=== PATIENT | male | born 1990 | race Caucasian/White ===

== ENCOUNTER 2018-12-23 10:01 | Emergency (ER) | payer SELFPAY ==
[2018-12-23] MEDS ORDERED: Sodium Chloride 0.9% 10 ML Syringe FLUSH PRN (10:32)
[2018-12-23] MEDS ORDERED: Lidocaine 1% 10 ML MDV INJECT ONE (10:32)
--- NOTE | 2018-12-23 10:33 | EDM.PDOC ---
ED HPI GENERAL MEDICAL PROBLEM - General Chief Complaint: Neurological Problem Stated Complaint: SEIZURE Time Seen by Provider: 12/23/18 10:16 Source of Information: Reports: Patient, RN Notes Reviewed - History of Present Illness INITIAL COMMENTS - FREE TEXT/NARRATIVE: 28-year-old male was reported to have had a generalized seizure early this morning about 7 or 8 hours ago. He states he was standing shaving in the bathroom and then the next thing he knows he "was on the floor" his girlfriend heard him fall and observed generalized seizure activity that lasted more than 5 minutes, perhaps up to 10-15 minutes by her history from patient. EMS was called out but by the time they arrived the seizure had stopped, patient was awake and declined transport. Now that he has had more time to sleep and think about this he realizes he is at danger if he were to have another seizure when working. 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 - Related Data Allergies Allergy/AdvReac Type Severity Reaction Status Date / Time No Known Allergies Allergy Verified 12/23/18 10:13 Home Meds: Home Meds . [No Known Home Meds] 02/12/17 [History] Past Medical History - Past Health History Medical/Surgical History: Denies Medical/Surgical History Cardiovascular History: Reports: None Respiratory History: Reports: None Gastrointestinal History: Reports: None Genitourinary History: Reports: None Musculoskeletal History: Reports: None Neurological History: Reports: Seizure Psychiatric History: Reports: None Endocrine/Metabolic History: Reports: None Hematologic History: Reports: None Immunologic History: Reports: None Oncologic (Cancer) History: Reports: None Dermatologic History: Reports: None - Infectious Disease History Infectious Disease History: Reports: None - Past Surgical History Head Surgeries/Procedures: Reports: None HEENT Surgical History: Reports: Oral Surgery Social & Family History - Family History Family Medical History: Unobtainable - Tobacco Use Smoking Status *Q: Current Some Day Smoker Years of Tobacco use: 10 Packs/Tins Daily: 1 - Caffeine Use Caffeine Use: Reports: Coffee, Energy Drinks, Soda - Recreational Drug Use Recreational Drug Use: No ED ROS GENERAL - Review of Systems Review Of Systems: See Below Constitutional: Denies: Fever, Chills HEENT: Reports: Other (Left mouth laceration, no tongue injury) Respiratory: Denies: Shortness of Breath Cardiovascular: Denies: Chest Pain GI/Abdominal: Denies: Abdominal Pain, Nausea, Vomiting Musculoskeletal: Denies: Back Pain Skin: Reports: No Symptoms Neurological: Reports: Dizziness (He did feel dizzy for a while after the seizure, he now does feel back to normal) - Physical Exam Exam: See Below General Appearance: Alert, No Apparent Distress Throat/Mouth: Other (There is a 1.5 cm laceration L upper mouth that does cross the ismael border, moderately deep, gaping). No: Evidence of Tongue Biting Head Exam: Other (No other area of injury to the head or face). No: Facial Swelling Neck: Normal Inspection, Supple, Non-Tender Respiratory/Chest: No Respiratory Distress, Lungs Clear GI/Abdominal: Soft, Non-Tender Neuro Exam (Abbreviated): Alert, Oriented, No Motor/Sensory Deficits, Other (He has very slight shakiness of the upper extremities, [id number] testing normal) Extremities: Normal Inspection, Normal Range of Motion Skin Exam: Warm, Dry, Normal Color ED PROCEDURES - Laceration/Wound Repair Left Mouth Lac/wound length in cm: 1.5 Appearance: Linear Distal NVT: Neuro & Vascular Intact Anesthetic Type: Local Local Anesthesia - Lidocaine (Xylocaine): 1% Plain Skin Prep: Saline Suture Size: 4-0 # of Sutures: 3 Course - Vital Signs Last Recorded V/S: Last Vital Signs Temp 98.6 F 12/23/18 10:07 Pulse 82 12/23/18 10:07 Resp 16 12/23/18 10:07 BP 132/65 12/23/18 10:07 Pulse Ox 100 12/23/18 10:07 - Orders/Labs/Meds Orders: Active Orders 24 hr Category Date Time Status Peripheral IV Care [RC] . DIRECTED Care 12/23/18 10:33 Active Vaccines to be Administered [RC] PER UNIT ROUTINE Care 12/23/18 13:21 Active Peripheral IV Insertion Adult [OM.PC] Stat Oth 12/23/18 10:32 Ordered Labs: Laboratory Tests 12/23/18 12/23/18 Range/Units 10:55 10:55 WBC 8.45 (4.23-9.07) K/mm3 RBC 4.24 L (4.63-6.08) M/mm3 Hgb 13.0 L (13.7-17.5) gm/dl Hct 39.1 L (40.1-51.0) % MCV 92.2 (79.0-92.2) fl MCH 30.7 (25.7-32.2) pg MCHC 33.2 (32.2-35.5) g/dl RDW Std Deviation 41.7 (35.1-43.9) fL Plt Count 312 (163-337) K/mm3 MPV 9.9 (9.4-12.3) fl Neut % (Auto) 70.3 H (34.0-67.9) % Lymph % (Auto) 15.9 L (21.8-53.1) % Prairie % (Auto) 11.2 (5.3-12.2) % Eos % (Auto) 2.0 (0.8-7.0) Baso % (Auto) 0.2 (0.1-1.2) % Neut # (Auto) 5.94 H (1.78-5.38) K/mm3 Lymph # (Auto) 1.34 (1.32-3.57) K/mm3 Prairie # (Auto) 0.95 H (0.30-0.82) K/mm3 Eos # (Auto) 0.17 (0.04-0.54) K/mm3 Baso # (Auto) 0.02 (0.01-0.08) K/mm3 Sodium 140 (136-145) mEq/L Potassium 4.6 (3.5-5.1) mEq/L Chloride 103 (98-107) mEq/L Carbon Dioxide 31 (21-32) mEq/L Anion Gap 10.6 (5-15) BUN 12 (7-18) mg/dL Creatinine 0.8 (0.7-1.3) mg/dL Est Cr Clr Drug Dosing 143.80 mL/min Estimated GFR (MDRD) > 60 (>60) mL/min BUN/Creatinine Ratio 15.0 (14-18) Glucose 87 (74-106) mg/dL Calcium 8.8 (8.5-10.1) mg/dL Total Bilirubin 0.5 (0.2-1.0) mg/dL AST 24 (15-37) U/L ALT 36 (16-63) U/L Alkaline Phosphatase 96 (46-116) U/L Total Protein 7.0 (6.4-8.2) g/dl Albumin 3.8 (3.4-5.0) g/dl Globulin 3.2 gm/dL Albumin/Globulin Ratio 1.2 (1-2) Ethyl Alcohol 0.00 (0.00) gm% Meds: Medications Discontinued Medications Generic Name Dose Route Start Last Admin Trade Name Freq PRN Reason Stop Dose Admin Diphtheria/Tetanus/Acell Pertussis 0.5 ml 12/23/18 13:20 12/23/18 13:26 Adacel IM 12/23/18 13:21 0.5 ml .ONCE ONE Administration Sodium Chloride 1,000 mls @ 999 mls/hr 12/23/18 10:45 12/23/18 10:57 Normal Saline IV 999 mls/hr ONETIME ISAIAS Administration Lidocaine HCl 10 ml 12/23/18 10:32 12/23/18 10:47 Xylocaine 1% INJECT 12/23/18 10:33 10 ml ONETIME ONE Administration Sodium Chloride 10 ml 12/23/18 10:32 12/23/18 10:58 Saline Flush FLUSH 10 ml ASDIRECTED PRN Administration Keep Vein Open - Re-Assessments/Exams Free Text/Narrative Re-Assessment/Exam: 12/23/18 14:06 Labs did come back relatively normal. He did admit upon further questioning further that he had been drinking about 20 shots of hard liquor per day and then due to pressure from his girlfriend he decided to quit. Did taper down to about 10 shots a day and now has not had alcohol for about 5-7 days. He does work at [employer]. He states at times he will be up on ladders and tall bands 30-40 feet from the floor of the been. It obviously would be a great danger to him if he were to have a seizure in that situation. Discharge instructions as documented. Departure - Departure Time of Disposition: 12:42 Disposition: Home, Self-Care 01 Condition: Fair Clinical Impression: Seizure Laceration of mouth Qualifiers: Encounter type: initial encounter Qualified Code(s): S01.512A - Laceration without foreign body of oral cavity, initial encounter - Discharge Information Instructions: Laceration Care, Adult, Seizure, Adult Referrals: PCP,None [Primary Care Provider] - Forms: ED Department Discharge, ED Return to Work/School Form Additional Instructions: As discussed this was most likely an alcohol withdrawal seizure that you suffered early this morning. Therefore DO NOT DRIVE or work from any heights on a ladder more than 8-10 feet until you have had a follow-up medical appointment , EEG that is normal. You than can be fully cleared to drive and return to full duty at work with all of your prior activities which include climbing ladders to quite high heights. Continue to avoid alcohol. Return to ED as needed if symptoms worsening in any way. Laceration care instructions. Sutures can be removed in 5 days at our [facility] medical clinic. Call [phone] for appointment. - My Orders Last 24 Hours: My Active Orders 12/23/18 10:32 Peripheral IV Insertion Adult [OM.PC] Stat 12/23/18 10:33 Peripheral IV Care [RC] . DIRECTED 12/23/18 13:21 Vaccines to be Administered [RC] PER UNIT ROUTINE - Assessment/Plan Last 24 Hours: My Active Orders 12/23/18 10:32 Peripheral IV Insertion Adult [OM.PC] Stat 12/23/18 10:33 Peripheral IV Care [RC] . DIRECTED 12/23/18 13:21 Vaccines to be Administered [RC] PER UNIT ROUTINE
[2018-12-23] MEDS ORDERED: Sodium Chloride 0.9% 1,000 ML IV SCH (10:45)
[2018-12-23] MEDS ORDERED: Diphtheria,Pertussis(Acell),Tetanus Vaccine 0.5 ML Syringe IM ONE (13:20)
== END 2018-12-23 13:30 | disposition home or self-care (01) ==
LOC: JD.ED 10:01
DX: S01.512A Laceration without foreign body of oral cavity, initial encounter (principal); R56.9 Unspecified convulsions; F17.210 Nicotine dependence, cigarettes, uncomplicated; Z23 Encounter for immunization; W19.XXXA Unspecified fall, initial encounter; Y92.89 Other specified places as the place of occurrence of the external cause
CPT/HCPCS: 12011; 36415; 80053; 80320; 85025; 90471; 90715; 96360; 99284; J2001; J7040; 99283; G0480

== ENCOUNTER 2019-06-06 20:38 | Emergency (ER) | payer MEDICAID ==
--- NOTE | 2019-06-06 21:15 | EDM.PDOC ---
ED HPI GENERAL MEDICAL PROBLEM - General Chief Complaint: Abdominal Pain Stated Complaint: UPPER LEFT PAIN NEAR RIBCAGE Time Seen by Provider: 06/06/19 20:54 Source of Information: Reports: Patient History Limitations: Reports: No Limitations - History of Present Illness INITIAL COMMENTS - FREE TEXT/NARRATIVE: Mr. James is a very pleasant 29 year old man with a past medical history significant for a seizure suffered on 12/23/2018, for which he is on Keppra, who now presents to the ED after developing lower anterior left rib pain that he states developed after he had vigorous foreplay with his girlfriend, 3 or 4 days ago. He states that the pain is a "light pain" unless he flexes his abdominal musculature, such as with a sit up, at which time it becomes more severe. He otherwise denies dyspnea, chest pain, or palpitations. He has not taken any [id number] or home remedies to try to treat his symptoms. No prior similar symptoms. The patient denies recent fever, chills, sore throat, ear pain, nasal or sinus congestion, cough, nausea, vomiting, constipation, diarrhea, abdominal pain, urinary symptoms, recent weight gain or weight loss, recent bloody bowel movements or black bowel movements, recent joint aches, headaches, or rashes. Here in the ED, the patient is found to be hemodynamically stable, afebrile, saturating 97% on room air. The patient does not have a PCP. He does not recall the name of his Neurologist, at [facility]. He did not receive an influenza vaccine this season, and declined an offer to receive one here today. Left Upper Abdomen Pain Score (Numeric/FACES): 3 - Related Data Allergies Allergy/AdvReac Type Severity Reaction Status Date / Time No Known Allergies Allergy Verified 06/06/19 20:48 Home Meds: Home Meds Orphenadrine [Norflex] 1 tab PO Q12H PRN #14 tab.er 06/06/19 [Rx] levETIRAcetam [Keppra Xr] 1,500 mg PO BID 06/06/19 [History] Past Medical History Neurological History: Reports: Seizure (x 1 on 12/23/2018) - Past Surgical History HEENT Surgical History: Reports: Oral Surgery (wisdom teeth extraction) Social & Family History - Family History Family Medical History: Unobtainable - Tobacco Use Smoking Status *Q: Current Some Day Smoker Tobacco Use Within Last Twelve Months: Vaping (nicotine) Years of Tobacco use: 14 Packs/Tins Daily: 0.1 Packs/Tins Daily Comment: Down from 1 ppd - Caffeine Use Caffeine Use: Reports: Coffee, Energy Drinks, Soda - Alcohol Use Alcohol Use History: Yes Days Per Week of Alcohol Use: 2 Number of Drinks Per Day: 5 Total Drinks Per Week: 10 Alcohol Use Frequency: Socially (rarely to excess) - Recreational Drug Use Recreational Drug Use: Yes Drug Use in Last 12 Months: Yes Recreational Drug Type: Reports: Amphetamines (Speed) (last used around 2015), Ecstasy (last used around 2015), Heroin (last snorted, smoked, injected around 2015), LSD (Acid) (last used around 2015), Marijuana/Hashish (last smoked 2018) , Methamphetamine (last snorted, smoked, injected around 2015), Psilocybin ( Mushrooms) (last used around 2015), Other (see below) (Takes kratom daily) - Living Situation & Occupation Living situation: Reports: Single, with Significant Other (Girlfriend) Occupation: Unemployed ED ROS GENERAL - Review of Systems Review Of Systems: Comprehensive ROS is negative, except as noted in HPI. ED EXAM, GENERAL - Physical Exam Exam: See Below Exam Limited By: No Limitations General Appearance: Alert, WD/WN, No Apparent Distress Eye Exam: Bilateral Eye: EOMI, Normal Inspection Ears: Normal External Exam, Hearing Grossly Normal Nose: Normal Inspection Throat/Mouth: Normal Inspection, Normal Lips, Normal Voice, No Airway Compromise Head: Atraumatic, Normocephalic Neck: Normal Inspection, Full Range of Motion Respiratory/Chest: No Respiratory Distress, Lungs Clear, Normal Breath Sounds, No Accessory Muscle Use, Other (Reproducible tenderness to palpation of the lower left anterior ribs, in particular, the intercostal muscles. Related to this area, such as swelling, erythema, ecchymosis, or abrasion. No rub heard with respirations.). No: Decreased Breath Sounds, Crackles, Rhonchi, Wheezing, Pleural Rub, Prolonged Expiration Cardiovascular: Normal Peripheral Pulses, Regular Rate, Rhythm, No Edema, No Gallop, No JVD, No Murmur, No Rub Peripheral Pulses: 4+: Radial (L), Radial (R) GI/Abdominal: Normal Bowel Sounds, Soft, Non-Tender, No Organomegaly, No Distention, No Abnormal Bruit, No Mass (Male) Exam: Deferred Rectal (Males) Exam: Deferred Back Exam: Normal Inspection, Full Range of Motion, NT Extremities: Normal Inspection, Normal Range of Motion, No Pedal Edema, Normal Capillary Refill Neurological: Alert, Oriented, Normal Cognition, No Motor/Sensory Deficits Psychiatric: Normal Affect Skin Exam: Warm, Dry, Intact, Normal Color, No Rash Course - Vital Signs Last Recorded V/S: Last Vital Signs Temp 36.3 C 06/06/19 20:50 Pulse 78 06/06/19 20:50 Resp 16 06/06/19 20:50 BP 118/77 06/06/19 20:50 Pulse Ox 97 06/06/19 20:50 - Orders/Labs/Meds Orders: Active Orders 24 hr Category Date Time Status Chest 2V [CR] Stat Exams 06/06/19 21:12 Taken Labs: Laboratory Tests 06/06/19 Range/Units 21:25 D-Dimer, Quantitative 0.28 (0.19-0.50) mg/L - Re-Assessments/Exams Free Text/Narrative Re-Assessment/Exam: 06/06/19 21:13 The patient most likely strained some musculature over his lower left rib, or, alternatively he is suffering from an intercostal muscle spasm, however, in order to rule out a traumatic injury, such as a broken rib, or a PE, I have ordered a chest x-ray and a D-dimer. 06/06/19 22:24 Two-view chest radiograph appears to be grossly normal. The cardiac silhouette is within normal limits. No pulmonary vascular congestion. No pleural effusions. No focal infiltrate. No pneumothorax. Formal read per the Radiologist pending. The patient's D-dimer is within normal limits at 0.28. 06/06/19 22:31 Test results discussed with the patient. As above, today's work-up is unremarkable. The patient's pain is most likely due to an intercostal muscle spasm. The patient will be started on Norflex and ibuprofen, and I will prescribe some Norflex for him. Departure - Departure Time of Disposition: 22:32 Disposition: Home, Self-Care 01 Condition: Good Clinical Impression: Intercostal muscle strain - Discharge Information *PRESCRIPTION DRUG MONITORING PROGRAM REVIEWED*: Not Applicable *COPY OF PRESCRIPTION DRUG MONITORING REPORT IN PATIENT ARNAV: Not Applicable Referrals: PCP,None [Primary Care Provider] - Forms: ED Department Discharge Additional Instructions: You were seen in the emergency room after developing lower left rib pain following strenuous activity 3 to 4 days ago. Work-up in the ER included a chest x-ray and a D-dimer level, both of which returned normal. You do not have pneumonia or collapsed lung. You do not have a blood clot in your lungs. Based on your history, physical exam, and ER tests, the cause of your pain is most likely due to a spasm of an intercostal (between the ribs) muscle. You have been started on the muscle relaxant Norflex, and a prescription for Norflex has been sent to the [facility], located at [address] [place] [address]. Take 1 tablet of Norflex every 12 hours, starting tomorrow morning, Friday, 06/06, as prescribed. Norflex works well with ibuprofen. Take 3 tablets (600 mg) of [id number] ibuprofen, with food, every 8 hours, as needed for discomfort. If any other problems, please do not hesitate to return to the ER. Sepsis Event Note - Evaluation Sepsis Screening Result: No Definite Risk - Focused Exam Vital Signs: Vital Signs Temp Pulse Resp BP Pulse Ox 06/06/19 20:50 36.3 C 78 16 118/77 97 Date Exam was Performed: 06/06/19 Time Exam was Performed: 22:23 - My Orders Last 24 Hours: My Active Orders 06/06/19 21:12 Chest 2V [CR] Stat - Assessment/Plan Last 24 Hours: My Active Orders 06/06/19 21:12 Chest 2V [CR] Stat
[2019-06-06] MEDS ORDERED: Ibuprofen 600 MG Tab PO ONE (22:31)
[2019-06-06] MEDS ORDERED: Orphenadrine 100 MG Tab.ER PO STA (22:31)
--- NOTE | 2019-06-07 07:42 | CR ---
Chest: 2 views of the chest were obtained. Comparison: No prior chest imaging is available. Heart size and mediastinum are normal. Lungs are clear with no acute parenchymal change. Bony structures are unremarkable. Impression: 1. Nothing acute is seen on 2 view chest x-ray. Diagnostic code #1 This report was dictated in MDT
== END 2019-06-06 22:50 | disposition home or self-care (01) ==
LOC: JD.ED 20:38
DX: S29.011A Strain of muscle and tendon of front wall of thorax, initial encounter (principal); F17.210 Nicotine dependence, cigarettes, uncomplicated; F17.290 Nicotine dependence, other tobacco product, uncomplicated; Z79.899 Other long term (current) drug therapy; X58.XXXA Exposure to other specified factors, initial encounter
CPT/HCPCS: 36415; 71046; 85379; 99284; A9270; 99282